=== PATIENT | male | born 1965 | race African-American/Black ===

== ENCOUNTER 2019-04-04 16:20 | Emergency (ER) | payer SELFPAY ==
[2019-04-04 17:03] VITALS: BMI 33.4
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
[2019-04-04 17:31] LABS: BASO % 0.9 % (0-2.0); EOS % 10.3 % (0-4.5); HEMATOCRIT 49.3 % (35.4-49); HEMOGLOBIN 15.7 GM/dL (11.7-16.9); LYMPH % 34.7 % (8-40); MCH 23.2 pg (25.7-33.7); MCHC 31.9 g/dl (32.0-35.9); MEAN CELL VOLUME 72.7 fl (80-96); MONO % 9.7 % (3.8-10.2); NEUT % 44.4 % (42.8-82.8); RBC 6.78 M/mm3 (4.00-5.60); RDW 15.2 % (11.9-15.9); WHITE BLOOD COUNT 6.5 K/mm3 (4.0-10.0)
[2019-04-04 18:10] LABS: ALBUMIN 4.2 g/dl (3.4-5.0); ALK PHOS 78 U/L (45-117); ANION GAP 7 MMOL/L (8-16); BILIRUBIN,TOTAL 0.6 mg/dL (0.2-1); BLOOD UREA NITROGEN 13.5 mg/dL (7-18); CALCIUM 9.5 mg/dL (8.5-10.1); CHLORIDE 105 mmol/L (98-107); CO2 28 mmol/L (21-32); GLUCOSE,RANDOM 90 mg/dL (74-106); POTASSIUM 4.2 mmol/L (3.5-5.1); SGOT/AST 36 U/L (15-37); SGPT/ALT 48 U/L (13-61); SODIUM 139 mmol/L (136-145); TOT PROT 7.1 g/dl (6.4-8.2)
[2019-04-04 18:43] LABS: MEAN PLT VOLUME 9.8 fl (7.5-11.1); PLATELET COUNT 78 K/MM3 (134-434)
--- NOTE | 2019-04-04 19:34 | PDOC ---
*Physical Exam - Vital Signs Last Vital Signs Temp Pulse Resp BP Pulse Ox 98.3 F 74 18 167/114 H 99 04/04/19 16:20 04/04/19 16:20 04/04/19 16:20 04/04/19 16:20 04/04/19 16:20 ED Treatment Course - LABORATORY CBC & Chemistry Diagram: 04/04/19 17:20 04/04/19 17:20 - ADDITIONAL ORDERS Additional order review: Laboratory Results 04/04/19 17:20 Sodium 139 Potassium 4.2 Chloride 105 Carbon Dioxide 28 Anion Gap 7 L BUN 13.5 Creatinine 1.0 Est GFR (CKD-EPI)AfAm 99.15 Est GFR (CKD-EPI)NonAf 85.55 Random Glucose 90 Calcium 9.5 Total Bilirubin 0.6 AST 36 ALT 48 Alkaline Phosphatase 78 Troponin I < 0.02 Total Protein 7.1 Albumin 4.2 04/04/19 17:20 RBC 6.78 H MCV 72.7 L MCHC 31.9 L RDW 15.2 MPV 9.8 Neutrophils % 44.4 Lymphocytes % 34.7 Monocytes % 9.7 Eosinophils % 10.3 H Basophils % 0.9 Medical Decision Making - Medical Decision Making Pt was signed out to me by resident Dr. Cash, who explained the presentation , ED course, any pending results, and needed interventions. Pending results include repeat troponin (to be done about 2029). Pt is currently stable and is lying comfortably. Pt has no current complaints at this time. 04/04/19 19:33 Second troponin sent to lab. Pending. 04/04/19 20:54 Second troponin negative. Safe for discharge home with PCP f/u. Strict return precautions provided with pt understanding. Pt comfortable and has had no further syncopal episodes in ED. 04/04/19 21:28 *DC/Admit/Observation/Transfer Diagnosis at time of Disposition: Near syncope - Discharge Dispostion Disposition: HOME Condition at time of disposition: Improved Decision to Admit order: No - Referrals Referrals: [facility] [place] Internal [facility] at [place] [Provider Group] Rafael Montoya MD [Staff Physician] - - Patient Instructions Printed Discharge Instructions: DI for Dizziness-Nonvertigo Additional Instructions: You were seen in the Emergency Department for evaluation of near-syncope. You were evaluated and your labs and imaging were unremarkable. Review the handout provided at discharge and follow up with you primary care provider within a week. Return to the Emergency Department if you develop fevers/chills, chest pain, trouble breathing, vision changes, dizziness/lightheadedness, weakness, changes in sensation, worsening symptoms, or any new/concerning symptoms. - Post Discharge Activity
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
[2019-04-04 21:15] VITALS: BP 143/93; PULSE 70; TEMP 98
--- NOTE | 2019-04-05 16:12 | EKG ---
Test Reason : Blood Pressure : / mmHG Vent. Rate : 076 BPM Atrial Rate : 076 BPM P-R Int : 148 ms QRS Dur : 104 ms QT Int : 394 ms P-R-T Axes : 012 001 036 degrees QTc Int : 443 ms NORMAL SINUS RHYTHM NORMAL ECG NO PREVIOUS ECGS AVAILABLE Confirmed by MD FAUSTINO, HAZEL ([id number]) on 04/05/2019 4:12:19 PM Referred By: Confirmed By:HAZEL HARMON MD
== END 2019-04-04 22:03 | disposition home or self-care (01) ==
LOC: JER 16:20
DX: R55 Syncope and collapse (principal)
CPT/HCPCS: 36415; 71045-TC-FY; 80053; 84484; 85025; 93005; 93010; 99284-25